=== PATIENT | female | born 1990 | race African-American/Black ===

== ENCOUNTER → 2020-10-12 | Outpatient (CLI) | payer MEDICAID ==
--- NOTE | 2020-10-12 08:26 | RAD ---
INDICATION: Reason: PELVIC PAIN, Hx OVARIAN CYSTS, DYSPAREUNIA / Spl. Instructions: / History: COMPARISON: None. TECHNIQUE: Grayscale and color ultrasound images uterus and adnexa. Transabdominal and transvaginal images obtained. Transvaginal images were needed to better visualize structures that were limited on transabdominal imaging. FINDINGS: Uterus: 94 x 50 x 42 mm. 5 mm endometrial stripe Right Ovary: 37 x 26 x 19 mm. Left Ovary: 33 x 30 x 16 mm. Vascular flow identified to bilateral ovaries. There is some fluid seen adjacent to the right ovary with a portion appearing tubular in nature. Danita ons of nodularity along the wall. Nabothian cyst formation. IMPRESSION: * Vascular flow seen to the ovaries. * Fluid-filled structure is identified within the right adnexa which has a tubular appearance with s ome nodularity along the wall and mild internal complexity which could be from debris within. Causes such as hydrosalpinx/pyosalpinx is within the differential as well as a elongated ovarian cystic lesi on. If the patient has infectious symptoms causes such as tubo-ovarian abscess also within the differ ential. This differential assumes a negative hCG and if hCG has not been obtained may be helpful to o btain one to exclude alternative causes such as ectopic. Report was called to the ordering provider's office at 8:20 AM on date of exam. Electronically signed by: Alberto Jacobo MD (10/12/2020 8:24 AM) [id number]
== END ==
LOC: US 06:49
PROVIDERS: ATTEND Obstetrics & Gynecology
DX: D25.9 Leiomyoma of uterus, unspecified (principal); N83.201 Unspecified ovarian cyst, right side; N88.8 Other specified noninflammatory disorders of cervix uteri; N94.10 Unspecified dyspareunia
CPT/HCPCS: 76830; 76856

== ENCOUNTER → 2020-12-26 | Outpatient (CLI) | payer MEDICAID, OTHER ==
[~2020-12-26] MED LIST: OXYC1TAB15 PO
== END ==
LOC: LAB 11:19
PROVIDERS: ATTEND Obstetrics & Gynecology
DX: Z01.812 Encounter for preprocedural laboratory examination (principal); K66.0 Peritoneal adhesions (postprocedural) (postinfection); N70.11 Chronic salpingitis; Z20.822 Contact with and (suspected) exposure to COVID-19
CPT/HCPCS: U0003; U0005

== ENCOUNTER 2020-12-27 07:05 | Day surgery (SDC) | payer MEDICAID ==
[~2020-12-27] VITALS: Ht 160 cm; Wt 68.0 kg
[~2020-12-27 07:05] MED LIST changes: +HYDROmorphone 2 MG/ML VIAL IVP PRN; +IV RINGERS,LACTATED 1000ML 1,000 ML IV SCH; -OXYC1TAB15 PO; +PROCHLORPERAZINE 10 MG/2 ML VIAL. IVP PRN; +ceFAZolin SODIUM IV Push 1 GM VIAL. IVP PRN; +fentaNYL PF VIAL 100 MCG/2 ML VIAL IVP PRN
[2020-12-27] MEDS ORDERED: SURGICEL HEMOSTAT 4X8 EACH. ONE (07:28)
[2020-12-27] MEDS ORDERED: BUPIVACAINE-EPI 0.25%-1:200000 MPF 30 ML VIAL. ONE (07:28)
[2020-12-27 07:31] VITALS: BP 110/81
[2020-12-27] MEDS ORDERED: PROPOFOL 10 MG/ML (20ML) VIAL. IV ONE (09:29)
[2020-12-27] MEDS ORDERED: LIDOCAINE 1% PF 5 ML VIAL. ONE (09:29)
[2020-12-27] MEDS ORDERED: ONDANSETRON PF 4 MG/2 ML VIAL. ONE (09:30)
[2020-12-27] MEDS ORDERED: ROCURONIUM 50 MG/5 ML VIAL. ONE (09:30)
[2020-12-27] MEDS ORDERED: DEXAMETHASONE SOD PHOS 4 MG/ML VIAL ONE (09:30)
[2020-12-27] MEDS ORDERED: fentaNYL PF VIAL 250 MCG/5 ML VIAL ONE (09:33)
[2020-12-27] MEDS ORDERED: GLYCOPYRROLATE 1 MG/5 ML VIAL. ONE (10:57)
[2020-12-27] MEDS ORDERED: NEOSTIGMINE METHYLSULFATE 5 MG/5 ML SYRINGE. ONE (10:58)
[2020-12-27] MEDS ORDERED: KETOROLAC 30 MG/ML VIAL. ONE (11:02)
[2020-12-27] MEDS ORDERED: SEVOFLURANE > 120 MINUTES. IH ONE (11:08)
--- NOTE | 2020-12-27 11:11 | PDOC ---
BRIEF OPERATIVE NOTE Date: Dec 27, 2020 Pre-Op Diagnosis Right Hydrosalpinx Post-Op Diagnosis Same Procedure Performed [facility] Right Salpingectomy and lysis of adhesions Surgeon Dr. Poe Payable Processor Midwife Practitioner: Jessica Anesthesia Type: General Blood Loss 10 ml Specimens Obtained Right fallopian tube Findings Right hydrosalpinx and multiple abdominal wall/pelvic sidewall adhesions Complications none Operative Note see dictation YOHAN POE Jr, MD Dec 27, 2020 11:11
[2020-12-27] MEDS ORDERED: OXYC1TAB15 PO (11:13)
--- NOTE | 2020-12-27 11:15 | DISCH ---
DISCHARGE INSTRUCTIONS Condition on Discharge Condition on Discharge: Stable Activity After Discharge Activity Instructions for Disc: Activity as tolerated Lifting Instructions after Dis: No heavy lifting Driving Instructions after Dis: Do not drive today Diet after Discharge Diet after Discharge: Regular Contacting the DRKelvin after DC Call your doctor for: Concerns you may have Follow-Up Follow up with: Dr. Poe in 1 week YOHAN POE Jr, MD Dec 27, 2020 11:15
[2020-12-27] MEDS ORDERED: MORPHINE SULFATE 2 MG/ML INJ. ONE (11:39)
[2020-12-27] MEDS ORDERED: PROCHLORPERAZINE 10 MG/2 ML VIAL. ONE (11:40)
[2020-12-27] MEDS: MORPHINE SULFATE 2 MG/ML INJ. IVP PRN ×2 (11:44→11:54)
[2020-12-27] MEDS ORDERED: oxyCODONE/APAP 5/325 1 TAB TABLET PO ONE (12:00)
--- NOTE | 2020-12-27 12:06 | OP ---
DATE OF SURGERY: 12/27/2020 PREOPERATIVE DIAGNOSIS: Right hydrosalpinx. POSTOPERATIVE DIAGNOSIS: Right hydrosalpinx. PROCEDURES: Laparoscopic right salpingectomy and lysis of adhesions. SURGEON: Goran Poe MD DIRECTOR OF REAL ESTATE: Jessica. ANESTHESIA: GETA ESTIMATED BLOOD LOSS: 10 mL COMPLICATIONS: None. FINDINGS: Right hydrosalpinx and multiple abdominal wall/pelvic sidewall adhesions, normal sized uterus, normal left fallopian tube, normal ovaries bilaterally. SUMMARY: A 30-year-old female with history of chronic pelvic pain and diagnosed with a right hydrosalpinx by pelvic sonogram. The patient was counseled on the risks, benefits and expectations of laparoscopic right salpingectomy and voiced clear understanding to proceed. DESCRIPTION OF PROCEDURE: The patient was taken to surgery suite and placed in dorsal lithotomy position, was prepped with Betadine solution for vaginal prep and ChloraPrep for abdominal prep. After adequate anesthesia, bivalve speculum was placed vaginally. Anterior lip of the cervix grasped with single tooth tenaculum. [place] uterine manipulator was then placed. The bivalve speculum was removed. Attention was now placed on abdomen. A small transverse skin incision was made 2 fingerbreadths below the left costal margin with a scalpel. The Veress needle was then placed. The abdomen was allowed to insufflate up to 1-1/2 liters CO2 gas. The Veress needle was then removed. A 5 mm trocar was placed. There were multiple abdominal wall adhesions of the bowel. Second incision was made in the left lower quadrant, in which an 8 mm trocar was placed with aid of the EnSeal device. These abdominal wall adhesions were dissected down with blunt dissection using the EnSeal device. Once these adhesions were removed, a third trocar was placed in the right lower quadrant, which a 5 mm trocar was placed. I then was able to visualize the right hydrosalpinx, which was manipulated from the pelvic sidewall. These adhesions were removed with the EnSeal device. The right fallopian tube was then isolated and dissected away from the right adnexa using the EnSeal device. The ovary was then visualized, which had adhesions as well. The left fallopian tube and ovary appeared normal. The 8 mm trocar was then removed and the 11 mm trocar was placed and an Endobag was placed and the right fallopian tube was then removed. The area was hemostatic. Tommy was then placed along the right adnexa. The trocars were then removed under direct visualization. The abdomen was allowed to deflate as much as possible along with mechanical manipulation. The 11 mm port site was reapproximated using 2-0 Vicryl suture in [id number] manner. The three skin incisions were closed at the skin level using 4-0 Vicryl suture in subcuticular manner. A 0.25% Marcaine with epinephrine was injected at each incision site. Uterine acorn manipulator and single tooth tenaculum were removed. The patient tolerated the procedure well and was taken to recovery room in stable condition. Sponge and needle count correct x 3. PIPER DR: Jonatan TID: [id number]
[2020-12-27 12:24] VITALS: BP 107/74
== END 2020-12-27 12:55 | disposition home or self-care (01) ==
LOC: SURG 07:05
PROVIDERS: ATTEND Obstetrics & Gynecology
DX: N70.11 Chronic salpingitis (principal); K66.0 Peritoneal adhesions (postprocedural) (postinfection); Z98.890 Other specified postprocedural states
CPT/HCPCS: 58661; 81025; A4930; A6219; J0690; J0780; J1100; J1885; J2270; J2704; J2710; J3010; J3490; A4452; J2405

== ENCOUNTER → 2021-05-07 | Outpatient (CLI) | payer MEDICAID ==
[~2021-05-07] MED LIST changes: -HYDROmorphone 2 MG/ML VIAL IVP PRN; -IV RINGERS,LACTATED 1000ML 1,000 ML IV SCH; +OXYC1TAB15 PO; -PROCHLORPERAZINE 10 MG/2 ML VIAL. IVP PRN; -ceFAZolin SODIUM IV Push 1 GM VIAL. IVP PRN; -fentaNYL PF VIAL 100 MCG/2 ML VIAL IVP PRN
--- NOTE | 2021-05-07 08:33 | RAD ---
EXAM: OBSTETRIC ULTRASOUND, <14 WEEKS. HISTORY: Right pelvic pain in . COMPARISON: None. FINDINGS: Sonographic evaluation of the pelvis was performed transabdominally and transvaginally. Visualization is very limited transabdominally. The uterus is anteverted and measures 11.1 x 4.5 x 5. 2 cm. There is a single intrauterine gestation measuring 5 weeks 5 days. heart rate is 116 bpm. A yolk sac is visualized. The gestational sac is regular. There is no subchorionic collection. The right ovary measures 2.9 x 1.6 x 1.6 cm. The left ovary measures 3.4 x 1.9 x 1.8 cm. It contains an isoechoic 2.3 x 1.6 cm nodule which may reflect a corpus luteum. There is normal Doppler flow bila terally. There is no adnexal mass. There is no significant free fluid. IMPRESSION: 1. Single intrauterine gestation measuring 5 weeks 5 days. heart rate 116 bpm. Electronically signed by: Gely Miramontes MD (05/07/2021 8:31 AM) [id number]
== END ==
LOC: US 07:59
PROVIDERS: ATTEND Obstetrics & Gynecology
DX: O34.591 Maternal care for other abnormalities of gravid uterus, first trimester (principal); Z3A.01 Less than 8 weeks gestation of pregnancy
CPT/HCPCS: 76801